=== PATIENT | male | born 1990 | race Two or more races ===

== ENCOUNTER 2019-04-14 20:10 | Emergency (ER) | payer BC ==
[~2019-04-14] VITALS: Ht 180.3 cm; Wt 135.1 kg
[2019-04-14 20:17] VITALS: BP 130/86
--- NOTE | 2019-04-14 20:27 | NUR ---
PT HERE WITH C/O RIGHT SIDED HEEL PAIN X 3 MONTHS. PT STATES HE GOOGLED IT AND IT SAID "I HAVE THAT PLANTAR THINGY, I TRIED THE TENNIS BALLS AND INSERTS AND IT ISN'T GOING AWAY."
--- NOTE | 2019-04-14 21:05 | NUR ---
REPORT GIVEN TO YUNIER GREER. CARE TRANSFERRED.
[2019-04-14] MEDS ORDERED: NAPROXEN 500 MG TABLET ONE (21:49)
--- NOTE | 2019-04-14 21:52 | NUR ---
MEDS ADMIN PER JUN. PT STATES HE HAS TAKEN NAPROXEN AT HOME AND HAS NOT HAD ANY REACTION.
[2019-04-14] MEDS ORDERED: NAPROXEN 500 MG TABLET PO ONE (22:00)
== END 2019-04-14 22:24 | disposition home or self-care (01) ==
LOC: ED 20:55
DX: M72.2 Plantar fascial fibromatosis (principal); M77.9 Enthesopathy, unspecified
CPT/HCPCS: 99283

== ENCOUNTER 2019-04-26 19:32 | Emergency (ER) | payer BC ==
[~2019-04-26] VITALS: Ht 180.3 cm; Wt 138.0 kg
[2019-04-26 19:44] VITALS: BP 142/86
[2019-04-26] MEDS ORDERED: hydrOXyzine 50MG TABLET PO ONE (21:00)
== END 2019-04-26 20:58 | disposition home or self-care (01) ==
LOC: ED 20:40
DX: B86 Scabies (principal); B08.4 Enteroviral vesicular stomatitis with exanthem
CPT/HCPCS: 99283